=== PATIENT | female | born 1985 | race Two or more races ===

== ENCOUNTER 2022-09-28 14:05 | Emergency (ER) | payer OTHER ==
[~2022-09-28] VITALS: Ht 160 cm; Wt 68.0 kg
[2022-09-28] MEDS ORDERED: FOLIC ACID0.8 M1 PO (14:20)
== END 2022-09-28 18:10 | disposition home or self-care (01) ==
LOC: ER 14:05
DX: O20.9 Hemorrhage in early pregnancy, unspecified (principal); Z3A.01 Less than 8 weeks gestation of pregnancy

== ENCOUNTER 2022-11-18 10:10 | Outpatient (CLI) | payer OTHER ==
[~2022-11-18 10:10] MED LIST: FOLIC ACID0.8 M1 PO
== END 2022-11-18 12:05 | disposition home or self-care (01) ==
LOC: PRENATAL 10:10
PROVIDERS: ATTEND Obstetrics & Gynecology Maternal & Fetal Medicine
DX: O36.80X0 Pregnancy with inconclusive fetal viability, not applicable or unspecified (principal); O09.529 Supervision of elderly multigravida, unspecified trimester; Z3A.13 13 weeks gestation of pregnancy

== ENCOUNTER 2022-11-23 15:58 | Emergency (ER) | payer OTHER ==
[~2022-11-23] VITALS: Ht 160 cm; Wt 69.4 kg
== END 2022-11-23 21:09 | disposition home or self-care (01) ==
LOC: ER 15:58
DX: O98.512 Other viral diseases complicating pregnancy, second trimester (principal); Z3A.13 13 weeks gestation of pregnancy; U07.1 COVID-19

== ENCOUNTER 2022-12-30 08:54 | Outpatient (CLI) | payer OTHER | END 2022-12-30 12:03 | disposition home or self-care (01) | LOC: PRENATAL 08:54 | PROVIDERS: ATTEND Obstetrics & Gynecology Maternal & Fetal Medicine | DX: O35.3XX0 Maternal care for (suspected) damage to fetus from viral disease in mother, not applicable or unspecified (principal); O09.529 Supervision of elderly multigravida, unspecified trimester; O44.00 Complete placenta previa NOS or without hemorrhage, unspecified trimester; Z3A.19 19 weeks gestation of pregnancy ==

== ENCOUNTER 2023-03-17 07:40 | Emergency (ER) | payer OTHER ==
[~2023-03-17] VITALS: Ht 160 cm; Wt 80.3 kg
[2023-03-17] MEDS ORDERED: PRENA1 TRUE CO1 EACH (08:18)
[2023-03-17 09:56] LABS: HEMATOCRIT 29.8 % (36.0-45.00); HEMOGLOBIN 10.2 g/dL (12.0-15.00); MEAN CELL VOLUME 90.1 fL (80.00-100.00); MEAN CORPUSCULAR HEMOGLOBIN 30.7 pg (27.00-32.0); MEAN CORPUSCULAR HGB CONC 34.1 g/dl (32.0-36.0); PLATELET COUNT 244 K/uL (150-450); RED BLOOD COUNT 3.31 M/uL (4.00-6.00); RED CELL DISTRIBUTION WIDTH 12.9 % (11.5-14.5)
[2023-03-17 10:21] LABS: CALCIUM 8.4 mg/dL (8.5-10.1); CREATININE SERUM 0.5 mg/dL (0.55-1.02); GFR 140.4; INR 0.98; PARTIAL THROMBOPLASTIN TIME 26.1 SECONDS (22.0-34.0); POTASSIUM 3.83 mEq/L (3.5-5.1); PROTHROMBIN TIME 10.3 SECONDS (9.0-11.5)
== END 2023-03-17 12:01 | disposition home or self-care (01) ==
LOC: ER 07:40
PROVIDERS: General Practice
DX: J45.909 Unspecified asthma, uncomplicated (principal); Z20.822 Contact with and (suspected) exposure to COVID-19; Z3A.30 30 weeks gestation of pregnancy

== ENCOUNTER 2023-04-03 12:55 | Emergency (ER) | payer OTHER ==
[~2023-04-03] VITALS: Ht 160 cm; Wt 80.3 kg
[~2023-04-03 12:55] MED LIST changes: +PRENA1 TRUE CO1 EACH
[2023-04-03 14:08] LABS: HEMATOCRIT 32.5 % (36.0-45.00); HEMOGLOBIN 11.3 g/dL (12.0-15.00); MEAN CELL VOLUME 86.9 fL (80.00-100.00); MEAN CORPUSCULAR HEMOGLOBIN 30.1 pg (27.00-32.0); MEAN CORPUSCULAR HGB CONC 34.7 g/dl (32.0-36.0); PLATELET COUNT 238 K/uL (150-450); RED BLOOD COUNT 3.75 M/uL (4.00-6.00); RED CELL DISTRIBUTION WIDTH 13.2 % (11.5-14.5)
[2023-04-03 14:31] LABS: PH,URINE 5.5 (5.0-8.0); URINE APPEARANCE Cloudy; URINE BILIRRUBIN Negative (NEGATIVE); URINE BLOOD Negative; URINE COLOR Dark Yellow; URINE GLUCOSE Negative (NEGATIVE); URINE LEUKOCYTE Small; URINE NITRATE Negative; URINE PROTEIN 30 (NEGATIVE); URINE RBC 14.2 uL (0.0-20.8); URINE WBC 124.4 uL (0.0-23.2)
[2023-04-03 14:54] LABS: URINE EPITHELIAL CELLS 0-4 /HPF; URINE YEAST FEW /hpf
[2023-04-03 15:01] LABS: CALCIUM 8.8 mg/dL (8.5-10.1); CREATININE SERUM 0.64 mg/dL (0.55-1.02); GFR 105.6; POTASSIUM 3.62 mEq/L (3.5-5.1)
[2023-04-03] MEDS ORDERED: MACRODANTIN100 M1 PO (17:14)
[2023-04-03] MEDS ORDERED: ONDANSETRON ODT8 MG PO (17:14)
== END 2023-04-03 17:23 | disposition home or self-care (01) ==
LOC: ER 12:55
PROVIDERS: Emergency Medicine
DX: O23.33 Infections of other parts of urinary tract in pregnancy, third trimester (principal); Z3A.32 32 weeks gestation of pregnancy; N39.0 Urinary tract infection, site not specified

== ENCOUNTER 2023-04-22 18:40 | Outpatient (CLI) | payer OTHER ==
[~2023-04-22] VITALS: Ht 160 cm; Wt 80.7 kg
[~2023-04-22 18:40] MED LIST changes: +MACRODANTIN100 M1 PO; +ONDANSETRON ODT8 MG PO
[2023-04-22 18:56] LABS: HEMATOCRIT 29.3 % (36.0-45.00); HEMOGLOBIN 9.9 g/dL (12.0-15.00); MEAN CELL VOLUME 85.7 fL (80.00-100.00); MEAN CORPUSCULAR HEMOGLOBIN 28.9 pg (27.00-32.0); MEAN CORPUSCULAR HGB CONC 33.7 g/dl (32.0-36.0); PLATELET COUNT 222 K/uL (150-450); RED BLOOD COUNT 3.42 M/uL (4.00-6.00); RED CELL DISTRIBUTION WIDTH 13.5 % (11.5-14.5)
[2023-04-22 18:59] LABS: URINE APPEARANCE Clear; URINE BILIRRUBIN Negative (NEGATIVE); URINE COLOR Yellow; URINE GLUCOSE Negative (NEGATIVE); URINE LEUKOCYTE Negative; URINE NITRATE Negative; URINE PROTEIN Negative (NEGATIVE)
[2023-04-22 19:00] LABS: URINE BACTERIA 12.5 uL (0.0-1933); URINE EPITHELIAL CELLS 9.2 uL (0.0-38.8); URINE RBC 34.4 uL (0.0-20.8); URINE WBC 8.4 uL (0.0-23.2)
[2023-04-22 19:14] LABS: URINE BLOOD Trace; URINE CRYSTALS MODERATE /HPF
[2023-04-22 19:15] LABS: CALCIUM 8.7 mg/dL (8.5-10.1); CREATININE SERUM 0.59 mg/dL (0.55-1.02); GFR 115.99; POTASSIUM 3.87 mEq/L (3.5-5.1); URINE MUCUS SCANT
[2023-05-11] MEDS ORDERED: AMPICILLIN TRI500 MG PO (11:26)
== END 2023-04-23 09:47 | disposition home or self-care (01) ==
LOC: OBS/DEL 18:40
PROVIDERS: ATTEND Obstetrics & Gynecology
DX: O26.893 Other specified pregnancy related conditions, third trimester (principal); O24.419 Gestational diabetes mellitus in pregnancy, unspecified control; Z3A.35 35 weeks gestation of pregnancy

== ENCOUNTER 2023-05-20 09:20 | Inpatient (IN) | payer OTHER ==
[~2023-05-20] VITALS: Ht 160 cm; Wt 78.9 kg
[~2023-05-20 09:20] MED LIST changes: +AMPICILLIN TRI500 MG PO
[2023-05-20 10:47] LABS: HEMATOCRIT 30.3 % (36.0-45.00); MEAN CELL VOLUME 83.6 fL (80.00-100.00); MEAN CORPUSCULAR HEMOGLOBIN 27.5 pg (27.00-32.0); PLATELET COUNT 202 K/uL (150-450); RED BLOOD COUNT 3.62 M/uL (4.00-6.00); RED CELL DISTRIBUTION WIDTH 15.3 % (11.5-14.5)
[2023-05-20 10:50] LABS: URINE APPEARANCE Clear; URINE BILIRRUBIN Negative (NEGATIVE); URINE BLOOD Negative; URINE COLOR Yellow; URINE GLUCOSE Negative (NEGATIVE); URINE LEUKOCYTE Negative; URINE NITRATE Negative; URINE PROTEIN Negative (NEGATIVE)
[2023-05-20 10:52] LABS: URINE BACTERIA 439.6 uL (0.0-1933); URINE EPITHELIAL CELLS 13.4 uL (0.0-38.8); URINE RBC 3.3 uL (0.0-20.8); URINE WBC 3.8 uL (0.0-23.2)
[2023-05-20 11:07] LABS: INR 0.95
[2023-05-20 11:29] LABS: ALBUMIN 2.4 gm/dL (3.4-5.0); BILIRUBIN TOTAL 0.26 mg/dL (0.3-1.2); CREATININE SERUM 0.54 mg/dL (0.55-1.02); GFR 128.47; GLOBULINA 3.9 G/DL (2.4-3.5); POTASSIUM 3.88 mEq/L (3.5-5.1); TOTAL PROTEIN 6.3 gm/dL (6.4-8.2)
[2023-05-21 17:25] LABS: ABG PH 7.344 (7.35-7.45); ABG pCO2 41.3 mmHg (35-45)
[2023-05-21 17:26] LABS: ABG PO2 30.5 mmHg (80-100); BASE EXCESS -3.5 mmol/l; SaO2 53.1 %; Tco2 23.2 mmol/l; o2 21 %
[2023-05-21 21:30] LABS: HEMOGLOBIN 9.9 g/dL (12.0-15.00); MEAN CELL VOLUME 83.8 fL (80.00-100.00); MEAN CORPUSCULAR HEMOGLOBIN 27.6 pg (27.00-32.0); MEAN CORPUSCULAR HGB CONC 32.9 g/dl (32.0-36.0); PLATELET COUNT 199 K/uL (150-450); RED BLOOD COUNT 3.58 M/uL (4.00-6.00); RED CELL DISTRIBUTION WIDTH 14.9 % (11.5-14.5)
== END 2023-05-23 16:26 | disposition home or self-care (01) | DRG 798 ==
LOC: LDR 09:20 → OB/GYN 09:20
PROVIDERS: ADMIT Obstetrics & Gynecology; ATTEND Obstetrics & Gynecology
PROC: 4A1HXCZ Monitoring of Products of Conception, Cardiac Rate, External Approach (ICD-10-PCS; 2023-05-20)
PROC: 3E0P7VZ Introduction of Hormone into Female Reproductive, Via Natural or Artificial Opening (ICD-10-PCS; 2023-05-20)
PROC: 10E0XZZ Delivery of Products of Conception, External Approach (ICD-10-PCS; principal; 2023-05-21)
PROC: 0HQ9XZZ Repair Perineum Skin, External Approach (ICD-10-PCS; 2023-05-21)
PROC: 3E033VJ Introduction of Other Hormone into Peripheral Vein, Percutaneous Approach (ICD-10-PCS; 2023-05-21)
PROC: 0UB70ZZ Excision of Bilateral Fallopian Tubes, Open Approach (ICD-10-PCS; 2023-05-22)
DX: O70.0 First degree perineal laceration during delivery (principal); Z37.0 Single live birth; Z3A.39 39 weeks gestation of pregnancy; Z20.822 Contact with and (suspected) exposure to COVID-19; Z30.2 Encounter for sterilization